=== PATIENT | male | born 1985 | race Caucasian/White ===

== ENCOUNTER 2016-10-14 10:03 | Emergency (ER) | payer BC, OTHER ==
[~2016-10-14] VITALS: Ht 167.6 cm; Wt 83.0 kg
[~2016-10-14 10:03] MED LIST: SUST50CA; TENO300; [UNRECOGNIZED DRUG - OTHER]
[2016-10-14 10:05] VITALS: BP 132/67; PULSE 81; RESP 14; TEMP 98; O2SAT 99
[2016-10-14] MEDS ORDERED: DOXY100C PO (10:37)
--- NOTE | 2016-10-14 10:48 | PD ---
HPI Chief Complaint: Medical Clearance Time Seen by Provider: 10:29 Travel History International Travel<30 days: No Contact w/Intl Traveler<30days: No Traveled to known affect area: No History of Present Illness HPI This patient reports that he has urethral drainage for a few days. He has history of chlamydia and this feels the same. No fever. No pelvic pain. No lesions on the penis. Symptoms severity is mild to moderate PFSH Past Medical History Autoimmune Disease: Yes Blood Disorders: No Cancer: No Cardiovascular Problems: No Chemotherapy: No Diminished Hearing: No Endocrine: No Genitourinary: No Immune Disorder: Yes (HIV POSITIVE) Musculoskeletal: No Neurologic: No Psychiatric: No Reproductive: No Respiratory: No Radiation Therapy: No Social History Alcohol Use: Yes Tobacco Use: No Substance Use: No Allergies-Medications (Allergen,Severity, Reaction): Coded Allergies: No Known Allergies (Verified Allergy, Mild, 06/27/06) Reported Meds & Prescriptions Reported Meds & Active Scripts Active Doxycycline Hyclate 100 Mg Cap 100 Mg PO BID Review of Systems General / Constitutional: No: Fever Cardiovascular: No: Chest Pain or Discomfort Respiratory: No: Cough Gastrointestinal: No: Nausea Physical Exam Narrative GASTROINTESTINAL: Abdomen soft, non-tender, nondistended. Positive bowel sounds. No hepato-splenomegaly, or palpable masses. No guarding. SKIN: Focused skin assessment reveals no rash or ulcers. Skin is warm and dry. Palpation shows no induration or nodules. : Penis has no lesions. No inguinal adenopathy or hernia. Data Data Last Documented VS Vital Signs Date Time Temp Pulse Resp B/P Pulse Ox O2 Delivery O2 Flow Rate FiO2 10/14/16 10:05 98.0 81 14 132/67 99 Orders Ceftriaxone Inj (Rocephin Inj) (10/14/16 10:45) [facility] Medical Decision Making Medical Screen Exam Complete: Yes Emergency Medical Condition: Yes Medical Record Reviewed: Yes Differential Diagnosis Gonorrhea urethritis, chlamydial urethritis, dysuria Narrative Course I have reviewed the patient's electronic medical record. I gave him 500 mg IM Rocephin and 1 week of doxycycline to empirically treat for chlamydia and gonorrhea. He should follow up with health department or his primary physician for more complete STD evaluation Diagnosis Primary Impression: Urethritis Additional Instructions: Follow-up with primary care or health department Med/Other Pt SpecificInfo: Prescription(s) given Scripts Doxycycline Hyclate 100 Mg [id number] Mg PO BID #14 CAP Ref 0 Prov:Aramis Garcia MD 10/14/16 Disposition: 01 DISCHARGE HOME Condition: Stable Aramis Garcia MD Oct 14, 2016 10:48
== END 2016-10-14 11:12 | disposition home or self-care (01) ==
LOC: NEPD 10:03
DX: N34.2 Other urethritis (principal); Z21 Asymptomatic human immunodeficiency virus [HIV] infection status; Z86.2 Personal history of diseases of the blood and blood-forming organs and certain disorders involving the immune mechanism
CPT/HCPCS: 96372; 99283; J0696

== ENCOUNTER 2017-02-12 03:53 | Emergency (ER) | payer BC, OTHER ==
[~2017-02-12 03:53] MED LIST changes: +DOXY100C PO; -SUST50CA; -TENO300; -[UNRECOGNIZED DRUG - OTHER]
--- NOTE | 2017-02-12 04:14 | PD ---
HPI Chief Complaint: Gotti act Time Seen by Provider: 04:03 Travel History International Travel<30 days: No Contact w/Intl Traveler<30days: No Traveled to known affect area: No History of Present Illness HPI 31-year-old white male presents to emergency department under Gotti act by PD. The patient had been arguing with his ex-girlfriend via text messages. The patient states that he had blocked his ex-girlfriend then she proceeded to text him on his work phone. He finally then text her suicide suggestive messages. She then in turn called the police. The patient here denies any true suicidal ideation. He denies any homicidal ideation. He states that he had said this because he was so frustrated with her text messages and he had been drinking alcohol. He denies any drugs. He does not smoke. He denies any active medical complaints. The patient denies any past medical problems. 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 The patient when questioned states that this is part of his past history is none of our business. He states his history has nothing to do with his evaluation today. 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 Patient also has a history of HIV. Autoimmune Disease: Yes Blood Disorders: No Cancer: No Cardiovascular Problems: No Chemotherapy: No Diminished Hearing: No Endocrine: No Genitourinary: No Immune Disorder: Yes (HIV POSITIVE) Musculoskeletal: No Neurologic: No Psychiatric: No Reproductive: No Respiratory: No Radiation Therapy: No Social History Alcohol Use: Yes Tobacco Use: No Substance Use: No Allergies-Medications (Allergen,Severity, Reaction): Coded Allergies: No Known Allergies (Verified , 02/12/17) Reported Meds & Prescriptions Reported Meds & Active Scripts Active Doxycycline Hyclate 100 Mg Cap 100 Mg PO BID Reported Truvada (Emtricitabine-Tenofovir Disoproxil Fumarate) 100-150 Mg Tab 1 Tab PO DAILY Physical Exam Narrative GENERAL: Well-nourished, well-developed patient. Appears intoxicated SKIN: Warm and dry. HEAD: Normocephalic and atraumatic. EYES: No scleral icterus. No injection or drainage. ENT: No nasal drainage noted. Mucous membranes pink. Airway patent. NECK: Supple, trachea midline. Moves head freely without obvious discomfort. CARDIOVASCULAR: Regular rate and rhythm without murmurs, gallops, or rubs. RESPIRATORY: Breath sounds equal bilaterally. No accessory muscle use. GASTROINTESTINAL: Abdomen soft, non-tender, nondistended. EXTREMITIES: No cyanosis or edema. BACK: Nontender without obvious deformity. No CVA tenderness. NEURO: Patient is alert and oriented. no sensorimotor deficits. Nonfocal. Normal speech. PSYCH: No delusions. No auditory or visual hallucinations. Data Data Orders Orders Complete Blood Count With Diff (02/12/17 04:10) Comprehensive Metabolic Panel (02/12/17 04:10) Psych Screen (02/12/17 04:10) Drug Screen, Random Urine (02/12/17 04:10) Alcohol (Ethanol) (02/12/17 04:10) Labs Laboratory Tests Test 02/12/17 04:30 White Blood Count 9.8 TH/MM3 Red Blood Count 6.09 MIL/MM3 Hemoglobin 18.4 GM/DL Hematocrit 53.7 % Mean Corpuscular Volume 88.2 FL Mean Corpuscular Hemoglobin 30.2 PG Mean Corpuscular Hemoglobin Concent 34.3 % Red Cell Distribution Width 14.4 % Platelet Count 231 TH/MM3 Mean Platelet Volume 6.8 FL Neutrophils (%) (Auto) 45.4 % Lymphocytes (%) (Auto) 48.4 % Monocytes (%) (Auto) 5.6 % Eosinophils (%) (Auto) 0.4 % Basophils (%) (Auto) 0.2 % Neutrophils # (Auto) 4.4 TH/MM3 Lymphocytes # (Auto) 4.7 TH/MM3 Monocytes # (Auto) 0.5 TH/MM3 Eosinophils # (Auto) 0.0 TH/MM3 Basophils # (Auto) 0.0 TH/MM3 CBC Comment DIFF FINAL Differential Comment Blood Urea Nitrogen 11 MG/DL Creatinine 1.28 MG/DL Random Glucose 95 MG/DL Total Protein 8.1 GM/DL Albumin 4.4 GM/DL Calcium Level 8.6 MG/DL Alkaline Phosphatase 60 U/L Aspartate Amino Transf (AST/SGOT) 45 U/L Alanine Aminotransferase (ALT/SGPT) 45 U/L Total Bilirubin 0.3 MG/DL Sodium Level 141 MEQ/L Potassium Level 3.7 MEQ/L Chloride Level 107 MEQ/L Carbon Dioxide Level 23.6 MEQ/L Anion Gap 10 MEQ/L Estimat Glomerular Filtration Rate 66 ML/MIN Urine Opiates Screen NEG Urine Barbiturates Screen NEG Urine Amphetamines Screen NEG Urine Benzodiazepines Screen NEG Urine Cocaine Screen NEG Urine Cannabinoids Screen NEG Ethyl Alcohol Level 237 MG/DL MDM Medical Decision Making Medical Screen Exam Complete: Yes Emergency Medical Condition: Yes Medical Record Reviewed: Yes Interpretation(s) CBC & BMP Diagram 02/12/17 04:30 Total Protein 8.1, Albumin 4.4, Calcium Level 8.6, Alkaline Phosphatase 60, Aspartate Amino Transf (AST/SGOT) 45 H, Alanine Aminotransferase (ALT/SGPT) 45, Total Bilirubin 0.3 Differential Diagnosis MDM: High Differential diagnoses: Schizophrenia, schizoaffective disorder, bipolar, anxiety, depression, adjustment reaction, mood disorder NOS, ODD, depressive disorder NOS, dementia, dementia with agitation, psychosis NOS, substance induced mood disorder, intermittent explosive disorder, Asperger syndrome, infection,electrolyte abnormality, malingering. Narrative Course Mental health screening discussed with the patient. Psychiatric screen ordered. The patient is medically cleared. This is medical clearance for psychiatric admission Diagnosis Primary Impression: Medical clearance for psychiatric admission Condition: Jordan Miranda Feb 12, 2017 04:14
[2017-02-12] MEDS ORDERED: EMTR1TAB5 PO (04:25)
[2017-02-12 04:44] LABS: AUTOMATED NEUTROPHIL # 4.4 TH/MM3 (1.8-7.7); BASOPHIL % 0.2 % (0.0-2.0); EOSINOPHIL % 0.4 % (0.0-4.0); HEMATOCRIT 53.7 % (39.0-51.0); HEMO FLAGS DIFF FINAL; LYMPH % 48.4 % (9.0-44.0); LYMPHOCYTE # 4.7 TH/MM3 (1.0-4.8); MEAN CELL VOLUME 88.2 FL (80.0-100.0); MEAN CORPUSCULAR HEMOGLOBIN 30.2 PG (27.0-34.0); MEAN CORPUSCULAR HGB CONC 34.3 % (32.0-36.0); MONO % 5.6 % (0.0-8.0); NEUT % 45.4 % (16.0-70.0); PLATELET COUNT 231 TH/MM3 (150-450); RED BLOOD COUNT 6.09 MIL/MM3 (4.50-5.90); RED CELL DISTRIBUTION WIDTH 14.4 % (11.6-17.2); WHITE BLOOD COUNT 9.8 TH/MM3 (4.0-11.0)
[2017-02-12 05:16] LABS: ALT (GPT) 45 U/L (12-78); ANION GAP 10 MEQ/L (5-15); AST (GOT) 45 U/L (15-37); BICARBONATE 23.6 MEQ/L (21.0-32.0); BLOOD UREA NITROGEN 11 MG/DL (7-18); CHLORIDE 107 MEQ/L (98-107); GLOMERULAR FILTRATION RATE 66 ML/MIN (>89); POTASSIUM 3.7 MEQ/L (3.5-5.1); SODIUM (NA) 141 MEQ/L (136-145)
[2017-02-12 05:18] LABS: ALCOHOL 237 MG/DL (0-5); ALKALINE PHOSPHATASE 60 U/L (45-117); TOTAL BILIRUBIN ADULT 0.3 MG/DL (0.2-1.0)
[2017-02-12 07:20] VITALS: BP 120/77; PULSE 81; RESP 17; TEMP 97.8; O2SAT 99
[2017-02-12 11:41] VITALS: BP 128/75; PULSE 88; RESP 16; O2SAT 99
--- NOTE | 2017-02-12 17:46 | PD ---
History of Present Illness Chief Complaint: Psychiatric Symptoms Time Seen by Provider: 17:45 Travel History International Travel<30 Days: No Contact w/Intl Traveler<30days: No Known affected area: No Legal Status Legal Status: Gotti Act Gotti Act Signed By: History of Present Illness: 31-year-old male brought in under a Gotti act for making threats to kill himself. Apparently the patient is having trouble with his ex-girlfriend, who he describes as stalking him she wants to get back together with him and he does not wish to continue the relationship. Out of frustration, he apparently told her he would rather kill himself than return to the relationship. Currently, however, the patient is no longer intoxicated with alcohol and he is verbally kenna for safety. He denies any suicidal or homicidal ideation, plan or intent. He states he does not drink regularly but he has been drinking yesterday because of his frustration. At this time he is calm, pleasant and cooperative. His cognition is intact and he has no psychotic symptoms. He is competent to make decisions. PFSH Past Medical History Medical History: Denies Significant Hx Autoimmune Disease: Yes Blood Disorders: No Cancer: No Cardiovascular Problems: No Chemotherapy: No Diminished Hearing: No Endocrine: No Genitourinary: No Immune Disorder: Yes (HIV POSITIVE) Musculoskeletal: No Neurologic: No Psychiatric: No Reproductive: No Respiratory: No Immunizations Current: Yes Radiation Therapy: No Psychiatric History Psychiatric History Hx Psychiatric Treatment: Denied History of Inpatient Treatment: No Guns or firearms in home: No Social History Hx Alcohol Use: Yes Hx Tobacco Use: No Hx Substance Use: Yes Substance Use Type: Alcohol Other Substances Used: STATES DOES NOT DRINK REGULARLY BUT YESTERDAY WAS UPSET AND DRANK. ETOH 247 Hx of Substance Use Treatment: No Allergies-Medications (Allergen,Severity, Reaction): Coded Allergies: No Known Allergies (Verified , 02/12/17) Reported Meds & Prescriptions Reported Meds & Active Scripts Active Doxycycline Hyclate 100 Mg Cap 100 Mg PO BID Reported Truvada (Emtricitabine-Tenofovir Disoproxil Fumarate) 100-150 Mg Tab 1 Tab PO DAILY Review of Systems Except as stated in HPI: all other systems reviewed are Neg Exam Alert: Yes [place]: Person, Place, Date, Situation Mood: Calm Affect: Appropriate Speech: Clear, Logical Eye Contact: Normal Memory Intact: Immediate, Recent, Remote Insight/Judgement Adequate MDM Medical Decision Making Medical Record Reviewed: Yes Assessment/Plan 31-year-old male seen with patient's nurse, Josselin and record reviewed. He is no longer intoxicated with alcohol and he is competent to verbally contract for safety. He denies any suicidal or homicidal ideation, plan or intent. He has a job working at a [employer] that he would like to return to. He has a home in [place]. This physician notes the patient has been HIV-positive since , but he obviously takes care of himself. He was encouraged to stay away from alcohol. Orders Orders Complete Blood Count With Diff (02/12/17 04:10) Comprehensive Metabolic Panel (02/12/17 04:10) Psych Screen (02/12/17 04:10) Drug Screen, Random Urine (02/12/17 04:10) Alcohol (Ethanol) (02/12/17 04:10) Diet Regular Basic (02/12/17 Breakfast) Diet Regular Basic (02/12/17 Dinner) Results Vital Signs Date Time Temp Pulse Resp B/P (MAP) Pulse Ox O2 Delivery O2 Flow Rate FiO2 02/12/17 11:41 88 16 128/75 (92) 99 02/12/17 07:20 81 17 02/12/17 07:20 97.8 81 17 120/77 (91) 99 Room Air Laboratory Tests Test 02/12/17 04:30 White Blood Count 9.8 Red Blood Count 6.09 Hemoglobin 18.4 Hematocrit 53.7 Mean Corpuscular Volume 88.2 Mean Corpuscular Hemoglobin 30.2 Mean Corpuscular Hemoglobin Concent 34.3 Red Cell Distribution Width 14.4 Platelet Count 231 Mean Platelet Volume 6.8 Neutrophils (%) (Auto) 45.4 Lymphocytes (%) (Auto) 48.4 Monocytes (%) (Auto) 5.6 Eosinophils (%) (Auto) 0.4 Basophils (%) (Auto) 0.2 Neutrophils # (Auto) 4.4 Lymphocytes # (Auto) 4.7 Monocytes # (Auto) 0.5 Eosinophils # (Auto) 0.0 Basophils # (Auto) 0.0 CBC Comment DIFF FINAL Differential Comment Blood Urea Nitrogen 11 Creatinine 1.28 Random Glucose 95 Total Protein 8.1 Albumin 4.4 Calcium Level 8.6 Alkaline Phosphatase 60 Aspartate Amino Transf (AST/SGOT) 45 Alanine Aminotransferase (ALT/SGPT) 45 Total Bilirubin 0.3 Sodium Level 141 Potassium Level 3.7 Chloride Level 107 Carbon Dioxide Level 23.6 Anion Gap 10 Estimat Glomerular Filtration Rate 66 Urine Opiates Screen NEG Urine Barbiturates Screen NEG Urine Amphetamines Screen NEG Urine Benzodiazepines Screen NEG Urine Cocaine Screen NEG Urine Cannabinoids Screen NEG Ethyl Alcohol Level 237 Diagnosis Primary Impression: Adjustment disorder with mixed disturbance of emotions and conduct Additional Impression: Alcohol abuse Condition: Stable Problem Qualifiers Robert Burns MD Feb 12, 2017 17:46
--- NOTE | 2017-02-12 18:34 | PD ---
Physical Exam Date Seen by Provider: Feb 12, 2017 Time Seen by Provider: 18:33 Data Data Last Documented VS Vital Signs Date Time Temp Pulse Resp B/P (MAP) Pulse Ox O2 Delivery O2 Flow Rate FiO2 02/12/17 18:03 02/12/17 11:41 88 16 99 02/12/17 07:20 97.8 Room Air Orders Orders Complete Blood Count With Diff (02/12/17 04:10) Comprehensive Metabolic Panel (02/12/17 04:10) Psych Screen (02/12/17 04:10) Drug Screen, Random Urine (02/12/17 04:10) Alcohol (Ethanol) (02/12/17 04:10) Diet Regular Basic (02/12/17 Breakfast) Labs Laboratory Tests Test 02/12/17 04:30 White Blood Count 9.8 TH/MM3 Red Blood Count 6.09 MIL/MM3 Hemoglobin 18.4 GM/DL Hematocrit 53.7 % Mean Corpuscular Volume 88.2 FL Mean Corpuscular Hemoglobin 30.2 PG Mean Corpuscular Hemoglobin Concent 34.3 % Red Cell Distribution Width 14.4 % Platelet Count 231 TH/MM3 Mean Platelet Volume 6.8 FL Neutrophils (%) (Auto) 45.4 % Lymphocytes (%) (Auto) 48.4 % Monocytes (%) (Auto) 5.6 % Eosinophils (%) (Auto) 0.4 % Basophils (%) (Auto) 0.2 % Neutrophils # (Auto) 4.4 TH/MM3 Lymphocytes # (Auto) 4.7 TH/MM3 Monocytes # (Auto) 0.5 TH/MM3 Eosinophils # (Auto) 0.0 TH/MM3 Basophils # (Auto) 0.0 TH/MM3 CBC Comment DIFF FINAL Differential Comment Blood Urea Nitrogen 11 MG/DL Creatinine 1.28 MG/DL Random Glucose 95 MG/DL Total Protein 8.1 GM/DL Albumin 4.4 GM/DL Calcium Level 8.6 MG/DL Alkaline Phosphatase 60 U/L Aspartate Amino Transf (AST/SGOT) 45 U/L Alanine Aminotransferase (ALT/SGPT) 45 U/L Total Bilirubin 0.3 MG/DL Sodium Level 141 MEQ/L Potassium Level 3.7 MEQ/L Chloride Level 107 MEQ/L Carbon Dioxide Level 23.6 MEQ/L Anion Gap 10 MEQ/L Estimat Glomerular Filtration Rate 66 ML/MIN Urine Opiates Screen NEG Urine Barbiturates Screen NEG Urine Amphetamines Screen NEG Urine Benzodiazepines Screen NEG Urine Cocaine Screen NEG Urine Cannabinoids Screen NEG Ethyl Alcohol Level 237 MG/DL MDM Supervised Visit with JONO: No Narrative Course 31-year-old male presented to the ED under Gotti act for psychiatric evaluation. He was medically cleared by Pito Mao PA-C and evaluated by Dr. Burns who lifted the Gotti act. On my exam: GENERAL: Well-nourished, well-developed athletic white male in no acute distress. PSYCHIATRIC: No delusional thought processes. No hallucinations. SKIN: Focused skin assessment warm/dry. HEAD: Normocephalic. EYES: No scleral icterus. No injection or drainage. NECK: Supple, trachea midline. No JVD or lymphadenopathy. CARDIOVASCULAR: Regular rate and rhythm without murmurs, gallops, or rubs. RESPIRATORY: Breath sounds clear and equal bilaterally. No accessory muscle use. GASTROINTESTINAL: Abdomen soft, non-tender, nondistended. Active bowel sounds. MUSCULOSKELETAL: No cyanosis, or edema. BACK: Nontender without obvious deformity. No CVA tenderness. The patient is discharged with instructions to follow-up at [facility] if he should choose treatment for alcohol abuse. He is stable and discharged home. Diagnosis Primary Impression: Adjustment disorder with mixed disturbance of emotions and conduct Additional Impression: Alcohol abuse Patient Instructions: General Instructions, Mood Disorders (ED), Alcohol Use Disorder (ED) Departure Forms: Tests/Procedures Disposition: 01 DISCHARGE HOME Condition: Stable Chanelle Oleary Feb 12, 2017 18:34
== END 2017-02-12 18:44 | disposition home or self-care (01) ==
LOC: NEPD 03:53 → NEPJ 18:44
DX: F43.25 Adjustment disorder with mixed disturbance of emotions and conduct (principal); F10.10 Alcohol abuse, uncomplicated; Z21 Asymptomatic human immunodeficiency virus [HIV] infection status
CPT/HCPCS: 80053; 80307; 85025; 99283

== ENCOUNTER 2017-05-01 06:15 | Emergency (ER) | payer BC, OTHER ==
[~2017-05-01] VITALS: Ht 167.6 cm; Wt 80.0 kg
[~2017-05-01 06:15] MED LIST changes: +EMTR1TAB5 PO
[2017-05-01 06:28] VITALS: BP 133/72; PULSE 82; RESP 16; TEMP 97.9; O2SAT 99
--- NOTE | 2017-05-01 06:32 | PD ---
HPI Chief Complaint: Psychiatric Symptoms Time Seen by Provider: 06:19 Travel History International Travel<30 days: No Contact w/Intl Traveler<30days: No Traveled to known affect area: No History of Present Illness HPI 31-year-old white male presents to emergency department under Gotti act by PD. The patient allegedly had sent suicidal text messages to a friend. The patient states that he does not want to talk about what's going on. He states that he is having a lot of social issues. He does not deny making any suicidal statements. Patient does report he [facility] then to have come here. He denies any toxic ingestions. He denies any homicidal ideation. He denies any medical complaints. Patient states that he's been compliant with his medicines. He admits to alcohol. Denies drugs. PFSH Past Medical History Autoimmune Disease: Yes Blood Disorders: No Cancer: No Cardiovascular Problems: No Chemotherapy: No Diminished Hearing: No Endocrine: No Genitourinary: No Immune Disorder: Yes (HIV POSITIVE) Musculoskeletal: No Neurologic: No Psychiatric: No Reproductive: No Respiratory: No Immunizations Current: Yes Radiation Therapy: No Tetanus Vaccination: < 5 Years Influenza Vaccination: No Past Surgical History Narrative Surgical Neck surgery Social History Alcohol Use: Yes Tobacco Use: No Substance Use: Yes Allergies-Medications (Allergen,Severity, Reaction): Coded Allergies: No Known Allergies (Verified Adverse Reaction, Unknown, 05/01/17) Reported Meds & Prescriptions Reported Meds & Active Scripts Active Reported Truvada (Emtricitabine-Tenofovir Disoproxil Fumarate) 100-150 Mg Tab 1 Tab PO DAILY Review of Systems Except as stated in HPI: all other systems reviewed are Neg General / Constitutional: No: Fever Eyes: No: Visual changes HENT: No: Headaches Cardiovascular: No: Chest Pain or Discomfort Respiratory: No: Shortness of Breath Gastrointestinal: No: Abdominal Pain Genitourinary: No: Dysuria Musculoskeletal: No: Pain Skin: No Rash Neurologic: No: Weakness Psychiatric: Positive: Depression, Suicidal Ideations, Mood Disorder, Substance Abuse, No: Anxiety, Disorder of Thought, Homicidal Ideation Endocrine: No: Polydipsia Hematologic/Lymphatic: No: Easy Bruising Physical Exam Narrative GENERAL: Well-nourished, well-developed patient. Appears intoxicated SKIN: Warm and dry. HEAD: Normocephalic and atraumatic. EYES: No scleral icterus. No injection or drainage. ENT: No nasal drainage noted. Mucous membranes pink. Airway patent. NECK: Supple, trachea midline. Moves head freely without obvious discomfort. Surgical scar posterior neck CARDIOVASCULAR: Regular rate and rhythm without murmurs, gallops, or rubs. RESPIRATORY: Breath sounds equal bilaterally. No accessory muscle use. GASTROINTESTINAL: Abdomen soft, non-tender, nondistended. EXTREMITIES: No cyanosis or edema. BACK: Nontender without obvious deformity. No CVA tenderness. NEURO: Patient is alert and oriented. no sensorimotor deficits. Nonfocal. Slightly slurred speech. PSYCH: No delusions. No auditory or visual hallucinations. Data Data Orders Orders Complete Blood Count With Diff (05/01/17 06:27) Comprehensive Metabolic Panel (05/01/17 06:27) Psych Screen (05/01/17 06:27) Drug Screen, Random Urine (05/01/17 06:27) Alcohol (Ethanol) (05/01/17 06:27) MDM Medical Decision Making Medical Screen Exam Complete: Yes Emergency Medical Condition: Yes Medical Record Reviewed: Yes Differential Diagnosis MDM: High Differential diagnoses: Schizophrenia, schizoaffective disorder, bipolar, anxiety, depression, adjustment reaction, mood disorder NOS, ODD, depressive disorder NOS, dementia, dementia with agitation, psychosis NOS, substance induced mood disorder, DMDD, Asperger syndrome, infection,electrolyte abnormality, malingering. Narrative Course Mental health screening discussed with the patient. Psychiatric screen ordered. Diagnosis Primary Impression: Medical clearance for psychiatric admission Jordan Arriaga May 01, 2017 06:32
[2017-05-01 06:51] LABS: AUTOMATED NEUTROPHIL # 3.5 TH/MM3 (1.8-7.7); BASOPHIL % 0.3 % (0.0-2.0); EOSINOPHIL % 0.4 % (0.0-4.0); HEMATOCRIT 53.6 % (39.0-51.0); HEMO FLAGS DIFF FINAL; LYMPH % 37.8 % (9.0-44.0); LYMPHOCYTE # 2.4 TH/MM3 (1.0-4.8); MEAN CELL VOLUME 89.2 FL (80.0-100.0); MEAN CORPUSCULAR HEMOGLOBIN 30.7 PG (27.0-34.0); MEAN CORPUSCULAR HGB CONC 34.4 % (32.0-36.0); MONO % 6.3 % (0.0-8.0); NEUT % 55.2 % (16.0-70.0); PLATELET COUNT 218 TH/MM3 (150-450); RED CELL DISTRIBUTION WIDTH 13.1 % (11.6-17.2); WHITE BLOOD COUNT 6.3 TH/MM3 (4.0-11.0)
[2017-05-01 07:06] LABS: ALT (GPT) 63 U/L (12-78); ANION GAP 9 MEQ/L (5-15); AST (GOT) 68 U/L (15-37); BICARBONATE 26.9 MEQ/L (21.0-32.0); BLOOD UREA NITROGEN 10 MG/DL (7-18); CHLORIDE 104 MEQ/L (98-107); GLOMERULAR FILTRATION RATE 64 ML/MIN (>89); POTASSIUM 3.7 MEQ/L (3.5-5.1); SODIUM (NA) 140 MEQ/L (136-145)
[2017-05-01 07:08] LABS: ALKALINE PHOSPHATASE 61 U/L (45-117); TOTAL BILIRUBIN ADULT 0.4 MG/DL (0.2-1.0)
[2017-05-01 07:11] LABS: ALCOHOL 218 MG/DL (0-5)
[2017-05-01 09:00] VITALS: BP 124/83; PULSE 81; RESP 16; TEMP 97.8; O2SAT 99
[2017-05-01 12:30] VITALS: BP 121/63; PULSE 90; RESP 18; TEMP 91.2; O2SAT 99
--- NOTE | 2017-05-01 17:05 | PD ---
Physical Exam Date Seen by Provider: May 01, 2017 Time Seen by Provider: 07:30 Narrative Well-nourished well-developed 31-year-old male patient that is under Gotti act and appears to be intoxicated was signed out to me a previous provider. Patient denies any homicidal or shouldn't final ideations at this time. He does admit to drinking alcohol but denies any drug use. Patient denies any physiological complaints at this time. Data Data Last Documented VS Vital Signs Date Time Temp Pulse Resp B/P (MAP) Pulse Ox O2 Delivery O2 Flow Rate FiO2 05/01/17 12:30 91.2 90 18 121/63 (82) 99 Room Air Orders Orders Complete Blood Count With Diff (05/01/17 06:27) Comprehensive Metabolic Panel (05/01/17 06:27) Psych Screen (05/01/17 06:27) Drug Screen, Random Urine (05/01/17 06:27) Alcohol (Ethanol) (05/01/17 06:27) Diet Regular Basic (05/01/17 Dinner) Labs Laboratory Tests Test 05/01/17 06:30 White Blood Count 6.3 TH/MM3 Red Blood Count 6.00 MIL/MM3 Hemoglobin 18.4 GM/DL Hematocrit 53.6 % Mean Corpuscular Volume 89.2 FL Mean Corpuscular Hemoglobin 30.7 PG Mean Corpuscular Hemoglobin Concent 34.4 % Red Cell Distribution Width 13.1 % Platelet Count 218 TH/MM3 Mean Platelet Volume 6.8 FL Neutrophils (%) (Auto) 55.2 % Lymphocytes (%) (Auto) 37.8 % Monocytes (%) (Auto) 6.3 % Eosinophils (%) (Auto) 0.4 % Basophils (%) (Auto) 0.3 % Neutrophils # (Auto) 3.5 TH/MM3 Lymphocytes # (Auto) 2.4 TH/MM3 Monocytes # (Auto) 0.4 TH/MM3 Eosinophils # (Auto) 0.0 TH/MM3 Basophils # (Auto) 0.0 TH/MM3 CBC Comment DIFF FINAL Differential Comment Blood Urea Nitrogen 10 MG/DL Creatinine 1.32 MG/DL Random Glucose 96 MG/DL Total Protein 8.2 GM/DL Albumin 4.7 GM/DL Calcium Level 8.8 MG/DL Alkaline Phosphatase 61 U/L Aspartate Amino Transf (AST/SGOT) 68 U/L Alanine Aminotransferase (ALT/SGPT) 63 U/L Total Bilirubin 0.4 MG/DL Sodium Level 140 MEQ/L Potassium Level 3.7 MEQ/L Chloride Level 104 MEQ/L Carbon Dioxide Level 26.9 MEQ/L Anion Gap 9 MEQ/L Estimat Glomerular Filtration Rate 64 ML/MIN Urine Opiates Screen NEG Urine Barbiturates Screen NEG Urine Amphetamines Screen POS Urine Benzodiazepines Screen NEG Urine Cocaine Screen NEG Urine Cannabinoids Screen NEG Ethyl Alcohol Level 218 MG/DL [facility] Supervised Visit with JONO: Yes Differential Diagnosis Depression versus suicidal ideation versus anxiety versus adjustment disorder versus mood disorder versus bipolar disorder versus schizophrenia versus paranoid disorder versus psychosis versus substance abuse versus alcohol abuse versus alcohol induced psychosis versus homicidality addition versus cutting versus personality disorder Narrative Course Blood work reviewed, vital signs reviewed. Patient medically cleared at this time and is ready for psych eval for final disposition. Laboratory Tests Test 05/01/17 06:30 White Blood Count 6.3 TH/MM3 Red Blood Count 6.00 MIL/MM3 Hemoglobin 18.4 GM/DL Hematocrit 53.6 % Mean Corpuscular Volume 89.2 FL Mean Corpuscular Hemoglobin 30.7 PG Mean Corpuscular Hemoglobin Concent 34.4 % Red Cell Distribution Width 13.1 % Platelet Count 218 TH/MM3 Mean Platelet Volume 6.8 FL Neutrophils (%) (Auto) 55.2 % Lymphocytes (%) (Auto) 37.8 % Monocytes (%) (Auto) 6.3 % Eosinophils (%) (Auto) 0.4 % Basophils (%) (Auto) 0.3 % Neutrophils # (Auto) 3.5 TH/MM3 Lymphocytes # (Auto) 2.4 TH/MM3 Monocytes # (Auto) 0.4 TH/MM3 Eosinophils # (Auto) 0.0 TH/MM3 Basophils # (Auto) 0.0 TH/MM3 CBC Comment DIFF FINAL Differential Comment Blood Urea Nitrogen 10 MG/DL Creatinine 1.32 MG/DL Random Glucose 96 MG/DL Total Protein 8.2 GM/DL Albumin 4.7 GM/DL Calcium Level 8.8 MG/DL Alkaline Phosphatase 61 U/L Aspartate Amino Transf (AST/SGOT) 68 U/L Alanine Aminotransferase (ALT/SGPT) 63 U/L Total Bilirubin 0.4 MG/DL Sodium Level 140 MEQ/L Potassium Level 3.7 MEQ/L Chloride Level 104 MEQ/L Carbon Dioxide Level 26.9 MEQ/L Anion Gap 9 MEQ/L Estimat Glomerular Filtration Rate 64 ML/MIN Urine Opiates Screen NEG Urine Barbiturates Screen NEG Urine Amphetamines Screen POS Urine Benzodiazepines Screen NEG Urine Cocaine Screen NEG Urine Cannabinoids Screen NEG Ethyl Alcohol Level 218 MG/DL Diagnosis Primary Impression: Medical clearance for psychiatric admission Isela Juan May 01, 2017 17:05
--- NOTE | 2017-05-01 17:15 | PD ---
History of Present Illness Chief Complaint: Psychiatric Symptoms Time Seen by Provider: 16:45 Travel History International Travel<30 Days: No Contact w/Intl Traveler<30days: No Known affected area: No Legal Status Legal Status: Gotti Act History of Present Illness: History of Present Illness HPI 31-year-old white male with history of adjustment disorder, alcohol abuse, under Gotti act by PD . As per the report he allegedly sent suicidal text messages to a friend. He admits to being intoxicated at the time and his BAL on arrival was 218. Patient is also positive for amphetamines and admits to having taken some Adderall . He did not make any attempt at harming himself. He says that he told them he was going to jump off a bridge and states now " I said some dumb shit it's not even high enough to jump off and get hurt". The patient was monitored and security environment and presented no behavioral concerns and no suicidality. Electronic medical record is reviewed. Patient was seen and evaluated recently by Dr. Robert Burns at which time he also presented intoxicated and had made suicidal statements. The patient is clinically sober now. He is alert and oriented, speech is clear. Gait is steady. There is no psychosis, no ursula. He continues to deny any suicidal or homicidal ideation, intent or plan. He is requesting to be discharged and is concerned about his job. He denies any depression or any other psychiatric symptoms. PFSH Past Medical History Autoimmune Disease: Yes Blood Disorders: No Cancer: No Cardiovascular Problems: No Chemotherapy: No Diminished Hearing: No Endocrine: No Genitourinary: No Immune Disorder: Yes (HIV POSITIVE) Musculoskeletal: No Neurologic: No Psychiatric: No Reproductive: No Respiratory: No Immunizations Current: Yes Radiation Therapy: No Tetanus Vaccination: < 5 Years Influenza Vaccination: No Psychiatric History Psychiatric History Hx Psychiatric Treatment: Denied History of Inpatient Treatment: No Guns or firearms in home: No Social History Single male. Lives by himself. 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 Hx Alcohol Use: Yes Hx Tobacco Use: No Hx Substance Use: Yes Substance Use Type: Alcohol Other Substances Used: STATES DOES NOT DRINK REGULARLY Hx of Substance Use Treatment: No Family Psychiatric History None reported Allergies-Medications (Allergen,Severity, Reaction): Coded Allergies: No Known Allergies (Verified Allergy, Unknown, 05/01/17) Reported Meds & Prescriptions Reported Meds & Active Scripts Active Reported Truvada (Emtricitabine-Tenofovir Disoproxil Fumarate) 100-150 Mg Tab 1 Tab PO DAILY Review of Systems Except as stated in HPI: all other systems reviewed are Neg Mental Status Examination Appearance: Appropriate Consciousness: Alert Orientation: x4 Motor Activity: Normal gait Speech: Unremarkable Language: Adequate Fund of Knowledge: Adequate Attention and Concentration: Adequate Memory: Unremarkable Mood: Appropriate Affect: Appropriate Thought Process & Associations: Intact Thought Content: Appropriate Hallucination Type: None Delusion Type: None Suicidal Ideation: No Suicidal Plan: No Suicidal Intention: No Homicidal Ideation: No Homicidal Plan: No Homicidal Intention: No Insight: Adequate Judgment: Adequate MDM Medical Decision Making Medical Record Reviewed: Yes Assessment/Plan 31-year-old male with no reported psychiatric history and history of alcohol and substance use disorder for while intoxicated then some messages to a friend indicating that he was having suicidal thoughts. The patient did not act on any of these thoughts . He was monitored and secure environment until he was clinically sober. Once sober he denies any suicidal or homicidal ideation, intent or plan. He is denying any psychiatric symptomatology. There is no evidence of any unstable mental illness as defined under the Gotti act. He is requesting to be discharged. There is no criteria as stated previously to hold him here against his will. The Gotti act will be listed. Psychiatrically clear for discharge. He is requesting a letter for his work. It will be provided for him. Orders Orders Complete Blood Count With Diff (05/01/17 06:27) Comprehensive Metabolic Panel (05/01/17 06:27) Psych Screen (05/01/17 06:27) Drug Screen, Random Urine (05/01/17 06:27) Alcohol (Ethanol) (05/01/17 06:27) Diet Regular Basic (05/01/17 Dinner) Results Vital Signs Date Time Temp Pulse Resp B/P (MAP) Pulse Ox O2 Delivery O2 Flow Rate FiO2 05/01/17 12:30 91.2 90 18 121/63 (82) 99 Room Air 05/01/17 09:00 97.8 81 16 124/83 (97) 99 Room Air 05/01/17 06:28 97.9 82 16 133/72 (92) 99 Laboratory Tests Test 05/01/17 06:30 White Blood Count 6.3 Red Blood Count 6.00 Hemoglobin 18.4 Hematocrit 53.6 Mean Corpuscular Volume 89.2 Mean Corpuscular Hemoglobin 30.7 Mean Corpuscular Hemoglobin Concent 34.4 Red Cell Distribution Width 13.1 Platelet Count 218 Mean Platelet Volume 6.8 Neutrophils (%) (Auto) 55.2 Lymphocytes (%) (Auto) 37.8 Monocytes (%) (Auto) 6.3 Eosinophils (%) (Auto) 0.4 Basophils (%) (Auto) 0.3 Neutrophils # (Auto) 3.5 Lymphocytes # (Auto) 2.4 Monocytes # (Auto) 0.4 Eosinophils # (Auto) 0.0 Basophils # (Auto) 0.0 CBC Comment DIFF FINAL Differential Comment Blood Urea Nitrogen 10 Creatinine 1.32 Random Glucose 96 Total Protein 8.2 Albumin 4.7 Calcium Level 8.8 Alkaline Phosphatase 61 Aspartate Amino Transf (AST/SGOT) 68 Alanine Aminotransferase (ALT/SGPT) 63 Total Bilirubin 0.4 Sodium Level 140 Potassium Level 3.7 Chloride Level 104 Carbon Dioxide Level 26.9 Anion Gap 9 Estimat Glomerular Filtration Rate 64 Urine Opiates Screen NEG Urine Barbiturates Screen NEG Urine Amphetamines Screen POS Urine Benzodiazepines Screen NEG Urine Cocaine Screen NEG Urine Cannabinoids Screen NEG Ethyl Alcohol Level 218 Diagnosis Primary Impression: alcohol abuse with intoxication Psychiatrically Cleared: Yes Med/ Other Pt Specific Info: No Meds Exist/No RX given Disposition: 01 DISCHARGE HOME Condition: Stable Anastasia Garcia [facility] May 01, 2017 17:15
--- NOTE | 2017-05-01 17:30 | PD ---
Physical Exam Date Seen by Provider: May 01, 2017 Time Seen by Provider: 17:25 Narrative 31-year-old well-nourished well-developed patient cleared psychiatrically and medically from our facility. She has no suicidal or homicidal ideation at this time. Patient has no physiological complaints. I was asked to disposition the patient. Data Data Last Documented VS Vital Signs Date Time Temp Pulse Resp B/P (MAP) Pulse Ox O2 Delivery O2 Flow Rate FiO2 05/01/17 12:30 91.2 90 18 121/63 (82) 99 Room Air Orders Orders Complete Blood Count With Diff (05/01/17 06:27) Comprehensive Metabolic Panel (05/01/17 06:27) Psych Screen (05/01/17 06:27) Drug Screen, Random Urine (05/01/17 06:27) Alcohol (Ethanol) (05/01/17 06:27) Diet Regular Basic (05/01/17 Dinner) Labs Laboratory Tests Test 05/01/17 06:30 White Blood Count 6.3 TH/MM3 Red Blood Count 6.00 MIL/MM3 Hemoglobin 18.4 GM/DL Hematocrit 53.6 % Mean Corpuscular Volume 89.2 FL Mean Corpuscular Hemoglobin 30.7 PG Mean Corpuscular Hemoglobin Concent 34.4 % Red Cell Distribution Width 13.1 % Platelet Count 218 TH/MM3 Mean Platelet Volume 6.8 FL Neutrophils (%) (Auto) 55.2 % Lymphocytes (%) (Auto) 37.8 % Monocytes (%) (Auto) 6.3 % Eosinophils (%) (Auto) 0.4 % Basophils (%) (Auto) 0.3 % Neutrophils # (Auto) 3.5 TH/MM3 Lymphocytes # (Auto) 2.4 TH/MM3 Monocytes # (Auto) 0.4 TH/MM3 Eosinophils # (Auto) 0.0 TH/MM3 Basophils # (Auto) 0.0 TH/MM3 CBC Comment DIFF FINAL Differential Comment Blood Urea Nitrogen 10 MG/DL Creatinine 1.32 MG/DL Random Glucose 96 MG/DL Total Protein 8.2 GM/DL Albumin 4.7 GM/DL Calcium Level 8.8 MG/DL Alkaline Phosphatase 61 U/L Aspartate Amino Transf (AST/SGOT) 68 U/L Alanine Aminotransferase (ALT/SGPT) 63 U/L Total Bilirubin 0.4 MG/DL Sodium Level 140 MEQ/L Potassium Level 3.7 MEQ/L Chloride Level 104 MEQ/L Carbon Dioxide Level 26.9 MEQ/L Anion Gap 9 MEQ/L Estimat Glomerular Filtration Rate 64 ML/MIN Urine Opiates Screen NEG Urine Barbiturates Screen NEG Urine Amphetamines Screen POS Urine Benzodiazepines Screen NEG Urine Cocaine Screen NEG Urine Cannabinoids Screen NEG Ethyl Alcohol Level 218 MG/DL MDM Supervised Visit with JONO: Yes Differential Diagnosis Depression versus suicidal ideation versus anxiety versus adjustment disorder versus mood disorder versus bipolar disorder versus schizophrenia versus paranoid disorder versus psychosis versus substance abuse versus alcohol abuse versus alcohol induced psychosis versus homicidality addition versus cutting versus personality disorder Narrative Course 31-year-old presented to our facility under Gotti act and was subsequently cleared medically and psychiatrically. The Gotti act has been lifted. I was asked to disposition the patient. The patient will be discharged home. Diagnosis Primary Impression: Medical clearance for psychiatric admission Referrals: [facility] (Out patient) Patient Instructions: Alcohol Intoxication (ED), General Instructions Disposition: 01 DISCHARGE HOME Condition: Stable Isela Juan May 01, 2017 17:30
== END 2017-05-01 18:55 | disposition home or self-care (01) ==
LOC: NEPD 06:15 → NEPJ 18:55
DX: F10.129 Alcohol abuse with intoxication, unspecified (principal); F43.20 Adjustment disorder, unspecified; Z21 Asymptomatic human immunodeficiency virus [HIV] infection status; Z79.899 Other long term (current) drug therapy
CPT/HCPCS: 80053; 80307; 85025; 99284